=== PATIENT | male | born 1985 | race Caucasian/White ===

== ENCOUNTER 2023-08-29 07:32 | Emergency (ER) | payer BC, OTHER ==
[2023-08-29] MEDS ORDERED: Amoxicillin/Clavulanate K 875-125 MG Tab PO ONE (08:42)
[2023-08-29 09:08] LABS: CORONAVIRUS COVID-19 NAA NEGATIVE (NEGATIVE); INFLUENZA A NAA NEGATIVE (NEGATIVE); INFLUENZA B NAA POSITIVE (NEGATIVE); RESPIRATORY SYNCYTIAL VIR NAA NEGATIVE (NEGATIVE)
== END 2023-08-29 09:32 | disposition home or self-care (01) ==
LOC: MW.ED 07:32
DX: J10.1 Influenza due to other identified influenza virus with other respiratory manifestations (principal); H66.91 Otitis media, unspecified, right ear
CPT/HCPCS: 0241U; 71046; 99283; A9270

== ENCOUNTER 2024-01-19 16:35 | Emergency (ER) | payer SELFPAY | END 2024-01-19 19:15 | disposition home or self-care (01) | LOC: MW.ED 16:35 | DX: K64.4 Residual hemorrhoidal skin tags (principal); I10 Essential (primary) hypertension; Z79.899 Other long term (current) drug therapy | CPT/HCPCS: 99283 ==